=== PATIENT | female | born 1995 | race Caucasian/White ===

== ENCOUNTER 2023-04-01 20:35 | Emergency (ER) | payer OTHER ==
[2023-04-01 20:47] VITALS: RESP 18; BMI 30.2
[2023-04-01] MEDS ORDERED: ACETAMINOPHEN 1000 MG/100 ML BAG IVPB ONE (21:45)
[2023-04-01] MEDS ORDERED: ACETAMINOPHEN INJECTION 100 ML IVPB ONE (21:56)
[2023-04-01 22:28] LABS: BASO % 0.7 % (0-2.0); EOS % 2.6 % (0-4.5); HEMATOCRIT 38.3 % (32.4-45.2); HEMOGLOBIN 12.9 GM/dL (10.7-15.3); LYMPH % 39.2 % (8-40); MCH 29.1 pg (25.7-33.7); MCHC 33.6 g/dl (32.0-36.0); MEAN CELL VOLUME 86.4 fl (80-96); MEAN PLT VOLUME 8.9 fl (7.5-11.1); MONO % 8.8 % (3.8-10.2); NEUT % 48.7 % (42.8-82.8); PLATELET COUNT 290 10^3/uL (134-434); RBC 4.43 M/mm3 (3.60-5.2); RDW 13.7 % (11.6-15.6); WHITE BLOOD COUNT 8.5 K/mm3 (4.0-10.0)
[2023-04-01 22:35] LABS: INR 1.08 (0.83-1.09); PROTHROMBIN TIME (PATIENT) 12.5 SEC (9.7-13.0)
[2023-04-01 22:38] LABS: ACTIVATED PTT 32.1 SECONDS (25.2-36.5)
[2023-04-01 22:47] LABS: POTASSIUM 4.2 mmol/L (3.5-5.1)
[2023-04-01 22:49] LABS: BLOOD UREA NITROGEN 11.8 mg/dL (7-18); CALCIUM 9.4 mg/dL (8.5-10.1)
[2023-04-01 22:50] LABS: ALBUMIN 4.3 g/dl (3.4-5.0)
[2023-04-01 22:52] LABS: CREATININE 0.7 mg/dL (0.55-1.3)
[2023-04-01 22:54] LABS: BILIRUBIN,TOTAL 0.4 mg/dL (0.2-1); TOT PROT 8.1 g/dl (6.4-8.2)
[2023-04-02 00:22] LABS: EPI CELLS >36 /uL (0-25.1); HYALINE CASTS 0 /uL (0-3.1); PH,URINE 5.5 (5.0-8.0); URINE APPEARANCE CLOUDY; URINE BILIRUBIN NEGATIVE (NEGATIVE); URINE COLOR RED; URINE GLUCOSE (UA) NEGATIVE (NEGATIVE); URINE KETONE TRACE (NEGATIVE); URINE LEUK ESTERASE 1+ (NEGATIVE); URINE NITRITE NEGATIVE (NEGATIVE); URINE PROTEIN 1+ (NEGATIVE); URINE RBC 5532 /uL (0-23.9); URINE UROBILINOGEN 0.2 mg/dL (0.2-1.0); URINE WBC 31 /uL (0-25.8)
[2023-04-02 00:38] VITALS: BP 125/75; PULSE 76; TEMP 98.9
[2023-04-02 00:58] LABS: URINE BACTERIA 176.7 /uL (0-1359)
== END 2023-04-02 00:39 | disposition home or self-care (01) ==
LOC: JER 20:35
PROC: 3E033NZ Introduction of Analgesics, Hypnotics, Sedatives into Peripheral Vein, Percutaneous Approach (ICD-10-PCS; principal; 2023-04-01)
DX: O03.9 Complete or unspecified spontaneous abortion without complication (principal); O26.891 Other specified pregnancy related conditions, first trimester; M54.50 Low back pain, unspecified; R11.0 Nausea; R68.83 Chills (without fever); R10.30 Lower abdominal pain, unspecified; Z3A.11 11 weeks gestation of pregnancy
CPT/HCPCS: 36415; 76817-TC; 80053; 81003; 84702; 85025; 85610; 85730; 86850; 86900; 86901; 87086; 99284-25